=== PATIENT | female | born 1975 | race Caucasian/White ===

== ENCOUNTER 2018-02-01 10:16 | Emergency (ER) | payer OTHER ==
[~2018-02-01] VITALS: Ht 167.6 cm; Wt 75.5 kg
[2018-02-01] MEDS ORDERED: IBUPROFEN 400 MG TABLET. PO ONE (10:45)
--- NOTE | 2018-02-01 10:53 | RAD ---
Left hand, 3 views, 02/01/2018: HISTORY: Hand injury, pain No acute fracture or dislocation is identified. The soft tissues are unremarkable. IMPRESSION: No acute left hand abnormality is detected. Electronically signed by: Guillermo Smith MD (02/01/2018 10:49 AM) [facility]
[2018-02-01] MEDS ORDERED: IBUP800T19 PO (11:15)
--- NOTE | 2018-02-01 11:15 | PHYS DOC ---
Past History Past Medical History: Other Past Surgical History: Cholecystectomy, , Other Alcohol Use: Occasionally Drug Use: None Adult General Chief Complaint Chief Complaint: UPPER EXTREMITY PAIN HPI HPI Patient is a 42 year old female who presents with complaining of injury to bilateral upper extremity during exercise. Pt was holding resistance on a runner with a resistance band and the band snapped back onto pt's wrists and hands.Patient states bilateral forearm and hand was hit by equipment during her exercise. Patient was able to drive home and asked her to give her a ride to come to the hospital. Patient is up- to-date with her immobilization. Patient rated her pain 6/10. Review of Systems Review of Systems Constitutional: Denies fever or chills [] Eyes: Denies change in visual acuity, redness, or eye pain [] HENT: Denies nasal congestion or sore throat [] Respiratory: Denies cough or shortness of breath [] Cardiovascular: No additional information not addressed in HPI [] GI: Denies abdominal pain, nausea, vomiting, bloody stools or diarrhea [] : Denies dysuria or hematuria [] Musculoskeletal: Denies back pain, reports joint pain [] Integument: Denies rash or skin lesions [] Neurologic: Denies headache, focal weakness or sensory changes [] Endocrine: Denies polyuria or polydipsia [] All other systems were reviewed and found to be within normal limits, except as documented in this note. Current Medications Current Medications Current Medications Medications (Trade) Dose Ordered Sig/Inocente Start Time Stop Time Status Last Admin Dose Admin Ibuprofen (Motrin) 800 mg 1X ONCE 02/01/18 10:45 02/01/18 10:46 DC 02/01/18 10:45 800 MG Allergies Allergies Allergies Coded Allergies Type Severity Reaction Last Updated Verified No Known Drug Allergies 02/01/18 No Physical Exam Physical Exam Constitutional: Well developed, well nourished, mild distress, non-toxic appearance. [] HENT: Normocephalic, atraumatic. Eyes: PERRLA, EOMI, conjunctiva normal, no discharge. [] Neck: Normal range of motion, no tenderness, supple, no stridor. [] Cardiovascular:Heart rate regular rhythm, no murmur [] Lungs & Thorax: Bilateral breath sounds clear to auscultation [] Skin: Warm, dry, no erythema, no rash. [] Back: No tenderness, no CVA tenderness. [] Extremities: Right forearm with contusion and marked tenderness in the ulnar side of distal forearm without contusion of hand without deformity, left hand without contusion and tenderness of the fourth and fifth metatarsal area with abrasion, ROM intact.] Neurologic: Alert and oriented X 3, normal motor function, normal sensory function, no focal deficits noted. [] Psychologic: Affect normal, judgement normal, mood normal. [] Current Patient Data Vital Signs Vital Signs Date Time Temp Pulse Resp B/P (MAP) Pulse Ox O2 Delivery O2 Flow Rate FiO2 02/01/18 10:16 98.3 80 18 98 Room Air EKG EKG [] Radiology/Procedures Radiology/[place] [address] IMAGING REPORT Signed PATIENT: NGUYỄN RICE ACCOUNT: [id number] : 1975 LOCATION: ER AGE: 42 SEX: F EXAM STATUS: REG ER ORD. PHYSICIAN: BIANCA BURGESS MD REASON: injury PROCEDURE: FOREARM RIGHT Right forearm, 2 views, 02/01/2018: HISTORY: Forearm injury No fracture is identified. There is minimal subcutaneous edema posteriorly. IMPRESSION: No acute bony abnormality is detected. Electronically signed by: Guillermo Smith MD (02/01/2018 11:02 AM) [facility] DICTATED AND SIGNED BY: GUILLERMO SMITH MD DATE: 02/01/18 1101 CC: BIANCA BURGESS MD; STEVEN DRAKE MD ~ [place] [id number] IMAGING REPORT Signed PATIENT: NGUYỄN RICE ACCOUNT: [id number] : 1975 LOCATION: ER AGE: 42 SEX: F EXAM STATUS: PRE ER ORD. PHYSICIAN: BIANCA BURGESS MD REASON: injury PROCEDURE: HAND LEFT 3V Left hand, 3 views, 02/01/2018: HISTORY: Hand injury, pain No acute fracture or dislocation is identified. The soft tissues are unremarkable. IMPRESSION: No acute left hand abnormality is detected. Electronically signed by: Guillermo Smith MD (02/01/2018 10:49 AM) [facility] DICTATED AND SIGNED BY: GUILLERMO SMITH MD DATE: 02/01/18 1048 CC: BIANCA BURGESS MD; STEVEN DRAKE MD ~ Course & Med Decision Making Course & Med Decision Making Pertinent Imaging studies reviewed. (See chart for details) Evaluation of patient in ER showed 42-year-old male patient with injury to bilateral upper extremity without deformity. X-ray did not show sign of fracture. Patient treated with ibuprofen in ER and prescription for ibuprofen for home was given. Dragon Disclaimer Dragon Disclaimer This electronic medical record was generated, in whole or in part, using a voice recognition dictation system. Departure Departure: Impression: Primary Impression: Contusion of hand(s) Disposition: HOME, SELF-CARE (at 1112) Condition: IMPROVED Referrals: STEVEN DRAKE MD (PCP) Patient Instructions: Hand Contusion Additional Instructions: Apply ice pack on affected area Follow-up with your primary care physician in 3-5 days Return to ER if not getting better Scripts Ibuprofen (IBUPROFEN) 800 Mg Tablet 1 TAB PO TID for pain, #30 TAB Prov: BIANCA BURGESS MD 02/01/18 BIANCA BURGESS MD Feb 01, 2018 11:15
[2018-02-01 11:24] VITALS: BP 105/57
--- NOTE | 2018-02-01 13:58 | RAD ---
Right forearm, 2 views, 02/01/2018: HISTORY: Forearm injury No fracture is identified. There is minimal subcutaneous edema posteriorly. IMPRESSION: No acute bony abnormality is detected. Electronically signed by: Guillermo Smith MD (02/01/2018 11:02 AM) [facility]
== END 2018-02-01 11:24 | disposition home or self-care (01) ==
LOC: ER 10:16
DX: S50.11XA Contusion of right forearm, initial encounter (principal); S60.222A Contusion of left hand, initial encounter; W22.8XXA Striking against or struck by other objects, initial encounter; Y93.A1 Activity, exercise machines primarily for cardiorespiratory conditioning; Y92.89 Other specified places as the place of occurrence of the external cause; Y99.8 Other external cause status
CPT/HCPCS: 73090; 73130; 99283

== ENCOUNTER 2018-03-07 09:22 | Emergency (ER) | payer OTHER ==
[~2018-03-07] VITALS: Ht 170.2 cm; Wt 75.3 kg
[~2018-03-07 09:22] MED LIST: IBUP800T19 PO
[2018-03-07 09:26] VITALS: BP 126/52
--- NOTE | 2018-03-07 09:33 | PHYS DOC ---
Past History Past Medical History: Other Past Surgical History: Cholecystectomy, , Other Smoking: Non-smoker Alcohol Use: Occasionally Drug Use: None Adult General Chief Complaint Chief Complaint: UPPER EXTREMITY PAIN HPI HPI Patient is a 42 year old right handed female who presents with complaining of right forearm pain. Patient states she was running and had a fall 4 days ago with injury to right forearm and left knee. Patient states her left knee getting better but her right forearm is not getting better and complaining of pain with radiation to her wrist and elbow. Patient denies deformity, ecchymosis , focal neuro deficit. Patient states she wants to make sure there is no fracture. Review of Systems Review of Systems Constitutional: Denies fever or chills [] Eyes: Denies change in visual acuity, redness, or eye pain [] HENT: Denies nasal congestion or sore throat [] Respiratory: Denies cough or shortness of breath [] Cardiovascular: No additional information not addressed in HPI [] GI: Denies abdominal pain, nausea, vomiting, bloody stools or diarrhea [] : Denies dysuria or hematuria [] Musculoskeletal: Denies back pain, reports extremity pain] Integument: Denies rash or skin lesions [] Neurologic: Denies headache, focal weakness or sensory changes [] Endocrine: Denies polyuria or polydipsia [] All other systems were reviewed and found to be within normal limits, except as documented in this note. Allergies Allergies Allergies Coded Allergies Type Severity Reaction Last Updated Verified No Known Drug Allergies 02/01/18 No Physical Exam Physical Exam Constitutional: Well developed, well nourished, no acute distress, non-toxic appearance. [] HENT: Normocephalic, atraumatic Eyes: PERRLA, EOMI, conjunctiva normal, no discharge. [] Neck: Normal range of motion, no tenderness, supple, no stridor. [] Cardiovascular:Heart rate regular rhythm, no murmur [] Lungs & Thorax: Bilateral breath sounds clear to auscultation [] Skin: Warm, dry, no erythema, no rash. [] Back: No tenderness, no CVA tenderness. [] Extremities: Right forearm without deformity or edema or ecchymosis, normal range of motion, mild tenderness in mid forearm, no cyanosis, no clubbing, ROM intact, no edema. [] Neurologic: Alert and oriented X 3, normal motor function, normal sensory function, no focal deficits noted. [] Psychologic: Affect normal, judgement normal, mood normal. [] EKG EKG [] Radiology/Procedures Radiology/Procedures [address] [address] IMAGING REPORT Signed PATIENT: NGUYỄN RICE ACCOUNT: [id number] : 1975 LOCATION: ER AGE: 42 SEX: F EXAM STATUS: REG ER ORD. PHYSICIAN: BIANCA BURGESS MD REASON: injury PROCEDURE: FOREARM RIGHT Examination: 2 views of the right forearm HISTORY: History of fall, right forearm pain COMPARISON: 02/01/2018. Findings The alignment of the radius, ulna grossly appears unremarkable. There is no acute fracture or dislocation identified. IMPRESSION: No acute osseous findings. Electronically signed by: Mg Decker MD (03/07/2018 9:47 AM) [facility] DICTATED AND SIGNED BY: MG DECKER MD DATE: 03/07/18 0944 CC: BIANCA BURGESS MD; STEVEN DRAKE MD ~ Course & Med Decision Making Course & Med Decision Making Pertinent Imaging studies reviewed. (See chart for details) Evaluation of patient in ER showed 42-year-old male patient with a fall 4 days ago and continued to have pain in right forearm. X-ray did not show fracture. Patient did not want treatment in ER for home and stated she wanted to make sure she didn't have fracture. Dragon Disclaimer Dragon Disclaimer This electronic medical record was generated, in whole or in part, using a voice recognition dictation system. Departure Departure: Impression: Primary Impression: Sprain of forearm, right Disposition: HOME, SELF-CARE Condition: STABLE Referrals: STEVEN DRAKE MD (PCP) Patient Instructions: Sprain Additional Instructions: Apply ice on the affected area Follow-up with your primary care physician in 3-5 days Return to ER if not getting better Scripts Ibuprofen (IBUPROFEN) 800 Mg Tablet 1 TAB PO TID for pain, #30 TAB Prov: BIANCA BURGESS MD 03/07/18 BIANCA BURGESS MD Mar 07, 2018 09:33
--- NOTE | 2018-03-07 09:51 | RAD ---
Examination: 2 views of the right forearm HISTORY: History of fall, right forearm pain COMPARISON: 02/01/2018. Findings The alignment of the radius, ulna grossly appears unremarkable. There is no acute fracture or dislocation identified. IMPRESSION: No acute osseous findings. Electronically signed by: Mg Decker MD (03/07/2018 9:47 AM) [place] [id number]
[2018-03-07] MEDS ORDERED: IBUP800T19 PO (09:58)
== END 2018-03-07 10:10 | disposition home or self-care (01) ==
LOC: ER 09:22
DX: S63.8X1A Sprain of other part of right wrist and hand, initial encounter (principal); W18.30XA Fall on same level, unspecified, initial encounter; Y93.02 Activity, running; Y92.89 Other specified places as the place of occurrence of the external cause; Y99.8 Other external cause status
CPT/HCPCS: 73090; 99283

== ENCOUNTER 2018-04-27 10:30 | Emergency (ER) | payer OTHER ==
[~2018-04-27] VITALS: Ht 170.2 cm; Wt 75.5 kg
[2018-04-27] MEDS ORDERED: DIPHTH,PERTUSS(ACELL),TET TOX 0.5 ML DISP.SYRIN. VAX IM ONE (11:00)
[2018-04-27 11:25] VITALS: BP 139/68
--- NOTE | 2018-04-27 11:27 | PHYS DOC ---
Past History Past Medical History: No Pertinent History, Arthritis Past Surgical History: Cholecystectomy, , Other Smoking: Non-smoker Alcohol Use: Occasionally Drug Use: None Adult General Chief Complaint Chief Complaint: ANKLE PROBLEM HPI HPI 42-year-old female presents with laceration of the right ankle. The patient was walking up and walks the dog when the screen door hit her in the back ankle and lacerated her skin. She has a V-shaped laceration. It was bleeding, but she was able to stop with direct pressure. She is concerned they will need stitches. She denies any other injuries or complaints. Her tetanus is not up-to-date. Review of Systems Review of Systems Constitutional: Denies fever or chills [] Eyes: Denies change in visual acuity, redness, or eye pain [] HENT: Denies nasal congestion or sore throat [] Respiratory: Denies cough or shortness of breath [] Cardiovascular: No additional information not addressed in HPI [] GI: Denies abdominal pain, nausea, vomiting, bloody stools or diarrhea [] : Denies dysuria or hematuria [] Musculoskeletal: Denies back pain or joint pain [] Integument: Right ankle laceration[] Neurologic: Denies headache, focal weakness or sensory changes [] Endocrine: Denies polyuria or polydipsia [] All other systems were reviewed and found to be within normal limits, except as documented in this note. Current Medications Current Medications Current Medications Medications (Trade) Dose Ordered Sig/Inocente Start Time Stop Time Status Last Admin Dose Admin Diphtheria/ Tetanus/Acell Pertussis (Boostrix) 0.5 ml ONCE ONCE 04/27/18 11:00 04/27/18 11:01 DC 04/27/18 10:56 0.5 ML Neomycin/ Polymyxin/ Bacitracin (Triple Antibiotic Ointment) 1 pkt 1X ONCE 04/27/18 11:30 04/27/18 11:31 UNV Allergies Allergies Allergies Coded Allergies Type Severity Reaction Last Updated Verified No Known Drug Allergies 02/01/18 No Physical Exam Physical Exam Constitutional: Well developed, well nourished, no acute distress, non-toxic appearance. [] HENT: Normocephalic, atraumatic, bilateral external ears normal, oropharynx moist, no oral exudates, nose normal. [] Eyes: PERRLA, EOMI, conjunctiva normal, no discharge. [] Neck: Normal range of motion, no tenderness, supple, no stridor. [] Cardiovascular:Heart rate regular rhythm, no murmur [] Lungs & Thorax: Bilateral breath sounds clear to auscultation [] Abdomen: Bowel sounds normal, soft, no tenderness, no masses, no pulsatile masses. [] Skin: 3 cm V-shaped laceration in the right medial ankle. Neurovascularly intact. No tendon involvement.[] Back: No tenderness, no CVA tenderness. [] Extremities: No tenderness, no cyanosis, no clubbing, ROM intact, no edema. [] Neurologic: Alert and oriented X 3, normal motor function, normal sensory function, no focal deficits noted. [] Psychologic: Affect normal, judgement normal, mood normal. [] Current Patient Data Vital Signs Vital Signs Date Time Temp Pulse Resp B/P (MAP) Pulse Ox O2 Delivery O2 Flow Rate FiO2 04/27/18 10:35 98.1 56 16 97 Room Air EKG EKG [] Radiology/Procedures Radiology/Procedures [] Course & Med Decision Making Course & Med Decision Making Pertinent Labs and Imaging studies reviewed. (See chart for details) Is able to repair the patient's laceration was sutures. See note for further details. Her tetanus was updated in the ED. She is stable for discharge at this time. [] Dragon Disclaimer Dragon Disclaimer This electronic medical record was generated, in whole or in part, using a voice recognition dictation system. Laceration Repair Lac Repair Indication: [3 cm V-shaped laceration of the right ankle] Procedure: Verbal consent was obtained for the patient to repair her V-shaped laceration with sutures. The wounds on her right ankle. The wound was thoroughly irrigated with saline and Hibiclens to its base. No foreign objects were found. I anesthetized the area with 2% lidocaine with epinephrine. A total of 2 mL was used. After good anesthesia was achieved, I repaired the laceration with 4 4-0 Ethilon interrupted sutures. Was good skin approximation. Bleeding was well-controlled. Total repaired wound length: He centimeters. Other Items: None The patient tolerated the procedure well. Complications: V-shaped flap. Departure Departure: Impression: Primary Impression: Laceration of right ankle without foreign body Disposition: 01 HOME, SELF-CARE Condition: STABLE Referrals: STEVEN DRAKE MD (PCP) Patient Instructions: Laceration Care, Adult, [id number] Problem Qualifiers Primary Impression: Laceration of right ankle without foreign body Encounter type: initial encounter Qualified Codes: S91.011A - Laceration without foreign body, right ankle, initial encounter ELEUTERIO GONZALEZ DO Apr 27, 2018 11:27
[2018-04-27] MEDS ORDERED: NEOMY/BACITR/POLYMYXIN OINT PACKET. TP ONE (11:30)
== END 2018-04-27 11:29 | disposition home or self-care (01) ==
LOC: ER 10:30
DX: S91.011A Laceration without foreign body, right ankle, initial encounter (principal); M19.90 Unspecified osteoarthritis, unspecified site; W26.8XXA Contact with other sharp object(s), not elsewhere classified, initial encounter; Y93.K1 Activity, walking an animal; Y92.89 Other specified places as the place of occurrence of the external cause; Y99.8 Other external cause status
CPT/HCPCS: 12002; 90471; 90715; 99283